=== PATIENT | male | born 1960 | race Caucasian/White ===

== ENCOUNTER 2020-05-04 16:54 | Emergency (ER) | payer MEDICARE, BC ==
[2020-05-04] MEDS ORDERED: SODIUM CHLORIDE 0.9% (FLUSH) 10 ML SYG IV PRN (17:07)
[2020-05-04] MEDS ORDERED: ONDANSETRON INJ 4 MG/2 ML VIAL IV ONE (17:10)
[2020-05-04] MEDS ORDERED: SODIUM CHLORIDE 0.9% 1000ML 1,000 ML IVS ONE (17:10)
[2020-05-04] MEDS ORDERED: MORPHINE SULFATE INJ 10 MG/ML VIAL IV ONE (17:10)
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
[2020-05-04] MEDS ORDERED: TETANUS,DIPHTHERIA,PERTUSSIS 1 EA SYG IM ONE (17:29)
[2020-05-04] MEDS ORDERED: HYDROmorphone HCL INJ 2 MG/ML VIAL IV ONE ×3 (18:23→20:13)
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
[2020-05-04] MEDS ORDERED: ceFAZolin SODIUM 2 GM in SODIUM CHLORIDE 0.9% 100ML 100 ML IVPB ONE (19:37)
[2020-05-04 20:04] VITALS: BP 132/79; TEMP 97; O2SAT 97
== END 2020-05-04 20:21 | disposition short-term general hospital (02) ==
LOC: ER 16:54
DX: S52.302C Unspecified fracture of shaft of left radius, initial encounter for open fracture type IIIA, IIIB, or IIIC (principal); S52.602 Unspecified fracture of lower end of left ulna; R10.32 Left lower quadrant pain; R07.89 Other chest pain; E11.9 Type 2 diabetes mellitus without complications; I10 Essential (primary) hypertension; Z79.899 Other long term (current) drug therapy; V86.99XA Unspecified occupant of other special all-terrain or other off-road motor vehicle injured in nontraffic accident, initial encounter; Y92.9 Unspecified place or not applicable
CPT/HCPCS: 36415; 70450; 71045; 71260; 72125; 72170; 73090; 73100; 74177; 80053; 80320; 83690; 84484; 85025; 85610; 85730; 90471; 90715; 93005; A4216; J0690; J1170; J2270; J2405; J7030; J7050